=== PATIENT | male | born 1950 | race Caucasian/White ===

== ENCOUNTER 2021-11-18 11:35 | Inpatient (IN) ==
[2021-11-18] MEDS ORDERED: SODIUM CHLORIDE 0.9% 500 ML IV STA (12:04)
[2021-11-18 12:39] LABS: Basophils # (auto) 0.06 K/uL (0-0.2); Basophils % (auto) 0.4 %; Hematocrit (blood only) 38.8 % (40.1-51.0); Hemoglobin 12.3 g/dl (14.0-18.0); Immature Granulocytes # (auto) 0.08 K/uL (0.00-0.02); Immature Granulocytes % (auto) 0.6 %; Lymphocytes # (auto) 0.66 K/uL (1.2-3.4); Lymphocytes % (auto) 4.9 %; Mean Corpuscular Hemoglobin 28.5 pg (25.0-34.0); Mean Corpuscular Hgb Conc 31.7 g/dL (32.0-36.0); Mean Corpuscular Volume 89.8 fL (80.0-100.0); Mean Platelet Volume 9.1 fL (9.4-12.4); Monocytes # (auto) 1.03 K/uL (0.24-0.82); Monocytes % (auto) 7.7 %; Neutrophils # (auto) 11.62 K/uL (1.4-6.5); Neutrophils % (auto) 86.4 %; Platelet Count 462 K/uL (130-400); RDW Coefficient of Variation 14.8 % (11.5-14.5); RDW Standard Deviation 48.6 fL (36.4-46.3); Red Blood Count 4.32 M/uL (4.63-6.08); White Blood Count 13.45 K/ul (4.8-10.8)
[2021-11-18 12:42] LABS: iSTAT Creatinine 1.2 mg/dl (0.6-1.3); iSTAT Hemoglobin 13.3 g/dl (14.0-18.0); iSTAT Ionized Calcium 1.56 mmol/l (1.12-1.32); iSTAT Potassium 3.9 mmol/L (3.3-5.0)
[2021-11-18 12:48] LABS: INR 1.2 (0.9-1.1); Prothrombin Time 12.8 Seconds (9.0-12.0)
--- NOTE | 2021-11-18 12:57 | XRay Report ---
XR chest 1V portable HISTORY: Shortness of breath. COMPARISON: Chest 05/02/2018. Chest CTA 11/05/2021. FINDINGS: Extensive pulmonary metastatic disease is again noted. No pneumothorax. Small bilateral ple ural effusions, right greater than left persist. The heart is normal in size. Mild interstitial thick ening is again noted. Right jugular Port-A-Cath terminates at the proximal SVC. IMPRESSION: 1. Extensive pulmonary metastatic disease is again noted. 2. Small bilateral pleural effusions and interstitial thickening persists. This could represent pulmo nary edema or lymphangitic spread of tumor. ACT 112: Negative or not required by law. Electronically signed by: Taiwo Harden M.D. 11/18/2021 12:55 PM
[2021-11-18 12:58] LABS: Albumin Globulin Ratio 0.8 (0.9-2); Albumin Level 3.3 gm/dl (3.4-5.0); BUN Creatinine Ratio 28.4 (10-20); C Reactive Protein 15.92 mg/dl (0-0.5); Calcium 11.9 mg/dl (8.5-10.1); Creatinine Clr Calc Pharmacy 60.4 ml/min; Est GFR (African American) 79.8 ml/min; Est GFR (Non-African American) 68.9 ml/min; Globulin 3.9 gm/dl (2.5-4.0); Magnesium 1.9 mg/dl (1.7-2.4); Potassium 3.8 mmol/L (3.5-5.1); Total Protein 7.2 gm/dl (6.0-8.3)
--- NOTE | 2021-11-18 12:59 | Emergency Department Note ---
Impression & Plan Hypoxia, Urothelial carcinoma of bladder, Weakness, Pulmonary embolism, Hypercalcemia ED Provider Note Provider: Luis Miguel Leigh MD DATE OF SERVICE: 11/18/2021 CHIEF COMPLAINT: Weakness, shortness of breath, cancer HISTORY OF PRESENT ILLNESS: Patient is a 71-year-old gentleman history of metas tatic bladder cancer status postresection with neobladder currently on chemotherapy following with the cancer center coming in today due to decline over the past 3 weeks. Increasing shortness of breath particular over the last several days with some increasing nausea last several days. Reports some constipation but denies any chest pain or abdominal pain. States compliance with home Eliquis. Was scheduled to have chemotherapy infusion again tomorrow. Has been through radiation previously. Follows with cancer center locally. Not eating or drinking much and significantly shortness of breath. Patient with a very distant history of smoking he does not use oxygen at home. No sick contact s reported. REVIEW OF SYSTEMS: A total of 10 review of systems was obtained and negative except as stated above in the HPI. PAST MEDICAL HISTORY: As noted above MEDICATIONS: Reviewed home medication listing SOCIAL HISTORY: Lives at home with , very distant former smoker PHYSICAL EXAM: GENERAL: alert and oriented in no acute distress on stretcher fatigued in appearance on oxygen Head: normocephalic and atraumatic EYES: No injection, discharge or icterus. NECK: Trachea midline. Supple. ENT: Mucous membranes pink and moist. LUNGS: Airway patent. No retractions. Breath sounds generally diminished HEART: Regular tachycardic rate and rhythm. No chest wall tenderness with right upper chest subcutaneous port in place ABDOMEN: Soft and non-tender, without guarding or rebound. SKIN: Acyanotic, warm, dry, without rashes EXTREMITIES: Without swelling, tenderness or deformity NEUROLOGICAL: No focal deficits. No aphasia. No facial droop or slurred speech.Ambulatory. EK bpm sinus tachycardia. No PVC or PAC. No acute ST segment elevation or depression with QTC of 444. CONTINUOUS CARDIAC MONITORING: was ordered and showed a heart rate of 100s-130s bpm in sinus tachycardia Patient's laboratory studies and imaging reviewed. Differential includes Infection, dehydration, metabolic abnormality, hypo/hyperglycemia, electrolyte disturbance, anemia, hypoxia, cardiac sources, intracerebral event, toxicologic, neurologic, as well as other pathologies. IMPRESSION/MEDICAL DECISION MAKING: Patient on chemotherapy with weakness and significant hypoxia and shortness of breath now. Has been anticoagulated. Recent outpatient CT scans with evidence of cancer spread into the lungs. Blood work here without anemia and an elevated white blood cell count of 13.4. No fevers reported. No sick contacts reported. COVID and influenza testing was sent. Cultures and lactate will be obtained. We will send for his CAT scan of the chest as well as the abdomen pelvis to exclude pathology in the lungs or in the abdomen given his constipation complaint. Chest x-ray per radiology questions effusions versus interstitial thickening question edema versus lymphangitic spread. Chemistries with stable renal function and electrolytes with a notably elevated lactate however and some hypercalcemia. C-reactive protein also significantly elevated. Did receive IV fluid resuscitation given elevated lactate and decreased intake. Very minimal troponin elevation likely more demand from his tachycardia. Denies chest pain. Negative COVID, influenza, and RSV testing. 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 CTA of the chest with extensive pulmonary metastatic disease and pleural effusions with some progression with segmental and subsegmental PEs. Reached out to his oncology group to discuss these findings. He will obviously need admission given the degree of hypoxia he has an updated the patient and his with these findings. We will initiate a heparin drip and discussion with oncology. Weaned to 10 L of oxygen. DIAGNOSIS: Hypoxia, weakness, hypercalcemia, bladder cancer, pulmonary embolism DISPOSITION: Hospitalist will evaluate Patient was agreeable with this plan. Critical Care I have personally spent 42 minutes of critical care time in the direct ma nagement of this patient. This includes bedside care, interpretation of diagnostic studies, and testing, discussion with consultants, patient, and family members, and other required patient management activities. These 42 minutes is in excess of all separately billable procedures. Past Med/Surg History Medical History (Updated 11/18/21 @ 13:50 by Luis Miguel Leigh M.D.) Acid reflux Anemia symptomatic anemia 03/2018 felt related to significant hematuria (20+ days) 2/2 bladder cancer. S/P 3U PRBCs 03/2018 Anxiety Cancer HX OF BLADDER CA Cervical lymphadenopathy History of hypertension Surgical History H/O total cystectomy BLADDER AND PROSTATE REMOVED & LYMPH NODES - HAS NEOBLADDER History of adenoidectomy History of colonoscopy History of cystoscopy CYSTOSCOPY, TUBRT, STENT= 03/26/18= LMA# 5.0 AT [facility] History of endoscopic sinus surgery History of surgery PORT RIGHT UPPER CHEST (CURRENTLY PRESENT) History of tonsillectomy Family History Son Age: 33 No problems noted. Sister Age: 67 No problems noted. Sister No problems noted. Father , heart disease, No problems noted. Mother Arthritis Other No pertinent family history Social History Smoking Status: Former smoker Cigarettes Per Day: h/o 1ppd x 30yrs; Second Hand Exposure: No; Hx Alcohol Use: Yes Alcohol type: wine Hx Substance Use: No Preferred Language: Palestinian Communication Ability: Effective Visual Impairment: No Limitations Snow Plow Operator Required: No Beliefs That Will Affect Care: None Current Living Situation: Spouse and Family Feels Safe at Home: Yes Assistive Devices: Glasses Allergies Allergies Allergy/AdvReac Type Severity Reaction Status Date / Time No Known Allergies Allergy Verified 04/23/21 09:09 Home Meds Home Medications Medication Instructions Recorded Confirmed olanzapine 2.5 mg tablet 2.5 mg PO ONCE PRN tab 11/10/20 04/23/21 sacituzumab govitecan-hziy 180 mg IV .[id number] 11/10/20 04/23/21 intravenous solution dronabinol 2.5 mg capsule (Marinol) 2.5 mg PO BID 12/07/20 04/23/21 ondansetron HCl 8 mg tablet 8 mg PO Q8H PRN 12/21/20 04/23/21 prochlorperazine maleate 10 mg 10 mg PO Q6H PRN 12/21/20 04/23/21 tablet (Compazine) apixaban 5 mg tablet (Eliquis) 5 mg PO BID 04/23/21 04/23/21 potassium chloride 10 mEq 20 meq PO DAILY tab 04/23/21 04/23/21 tablet,extended release(part/cryst) pregabalin 50 mg capsule (Lyrica) 50 mg PO TID 04/23/21 04/23/21 Results & Data (ED) Vital Signs Vital Signs - 24 hr 11/18/21 11:35 11/18/21 11:44 11/18/21 13:27 Temperature 36.5 C Temperature Source Temporal Artery Scan Pulse Rate 133 H Pulse Rate [Apical] 121 H Pulse Rate from SpO2 Sensor Pulse Rhythm Regular Pulse Rhythm [Apical] Regular Pulse Strength Normal Pulse Strength [Apical] Normal Respiratory Rate 30 H 22 Respiratory Effort / Characteristics Non-Labored Non-Labored Spontaneous Non-Labored Respiratory Depth Normal Normal Normal Respiratory Pattern Regular Regular Regular Blood Pressure 101/45 L Blood Pressure [Left Arm] 136/98 Blood Pressure Mean 63 Blood Pressure Mean [Left Arm] 110 Blood Pressure Position Sitting Blood Pressure Position [Left Arm] Lying Pulse Oximetry 92 88 L 95 Oxygen Delivery Method Oxymask Room Air Oxymask Oxygen Flow Rate 15 15 Sepsis Recent Fever Within 48 Hours No Sepsis New/Unexplained Change in Mental Status No Sepsis Action Taken by Nursing No Action Required Oxygen Flow Rate - Titration 4 Pulse Oximetry Post Tiitration 85 L 11/18/21 14:30 11/18/21 14:40 Temperature Temperature Source Pulse Rate 107 H 116 H Pulse Rate [Apical] Pulse Rate from SpO2 Sensor 107 H 111 H Pulse Rhythm Pulse Rhythm [Apical] Pulse Strength Pulse Strength [Apical] Respiratory Rate 28 H 29 H Respiratory Effort / Characteristics Respiratory Depth Respiratory Pattern Blood Pressure 136/98 Blood Pressure [Left Arm] Blood Pressure Mean 110 Blood Pressure Mean [Left Arm] Blood Pressure Position Blood Pressure Position [Left Arm] Pulse Oximetry 94 93 Oxygen Delivery Method Oxymask Oxymask Oxygen Flow Rate 10 10 Sepsis Recent Fever Within 48 Hours Sepsis New/Unexplained Change in Mental Status Sepsis Action Taken by Nursing Oxygen Flow Rate - Titration Pulse Oximetry Post Tiitration Laboratory Data Result diagrams: 11/18/21 12:20 11/18/21 12:20 Lab Results 11/18/21 11/18/21 11/18/21 Range/Units 12:20 12:20 12:20 WBC 13.45 H (4.8-10.8) K/ul RBC 4.32 L (4.63-6.08) M/uL Hgb 12.3 L (14.0-18.0) g/dl POC Hgb (14.0-18.0) g/dl Hct 38.8 L (40.1-51.0) % POC Hct (42-52) % MCV 89.8 (80.0-100.0) fL MCH 28.5 (25.0-34.0) pg MCHC 31.7 L (32.0-36.0) g/dL RDW Std Deviation 48.6 H (36.4-46.3) fL RDW Coeff of Marisol 14.8 H (11.5-14.5) % Plt Count 462 H (130-400) K/uL MPV 9.1 L (9.4-12.4) fL Immature Gran % (Auto) 0.6 % Neut % (Auto) 86.4 % Lymph % (Auto) 4.9 % [place] % (Auto) 7.7 % Eos % (Auto) 0.0 % Baso % (Auto) 0.4 % Neut # (Auto) 11.62 H (1.4-6.5) K/uL Lymph # (Auto) 0.66 L (1.2-3.4) K/uL [place] # (Auto) 1.03 H (0.24-0.82) K/uL Eos # (Auto) 0.00 (0-0.50) K/uL Baso # (Auto) 0.06 (0-0.2) K/uL Immature Gran # (Auto) 0.08 H (0.00-0.02) K/uL PT 12.8 H (9.0-12.0) Seconds INR 1.2 H (0.9-1.1) APTT (21.0-31.0) Seconds PTT Ratio POC Sodium (135-144) mmol/L Sodium 135 L (136-145) mmol/L POC Potassium (3.3-5.0) mmol/L Potassium 3.8 (3.5-5.1) mmol/L POC Chloride (101-112) mmol/L Chloride 102 (98-107) mmol/L Carbon Dioxide 24 (21-32) mmol/L POC Total CO2 (24-31) mmol/L Anion Gap 9 (3-11) POC Anion Gap (16-25) mmol/L POC BUN (7-18) mg/dl BUN 31 H (6-23) mg/dl Creatinine 1.09 (0.6-1.4) mg/dl POC Creatinine (0.6-1.3) mg/dl Est Cr Clr Drug Dosing 60.4 ml/min Est GFR ( Amer) 79.8 ml/min Est GFR (Non-Af Amer) 68.9 ml/min BUN/Creatinine Ratio 28.4 H (10-20) Glucose 163 H (70-99(Fasting)) mg/dl POC Glucose (other) (70-99) mg/dl Lactate (0.4-2.0) mmol/L Calcium 11.9 H (8.5-10.1) mg/dl POC Ioniz Calcium Karon (1.12-1.32) mmol/l Magnesium 1.9 (1.7-2.4) mg/dl Total Bilirubin 1.0 (0.2-1.0) mg/dl AST 21 (13-39) U/L ALT 12 (7-52) U/L Alkaline Phosphatase 91 (34-104) U/L Troponin I High Sens 49.5 H (0-20) pg/ml C-Reactive Protein 15.92 H (0-0.5) mg/dl Total Protein 7.2 (6.0-8.3) gm/dl Albumin 3.3 L (3.4-5.0) gm/dl Globulin 3.9 (2.5-4.0) gm/dl Albumin/Globulin Ratio 0.8 L (0.9-2) Lipase 5 L (11-82) U/L Procalcitonin (0-0.5) ng/ml TSH (0.300-4.500) uIu/ml SARS-CoV-2 (PCR) (Negative) Influenza Type A (PCR) (Neg) Influenza Type B (PCR) (Neg) RSV (RT-PCR) (Neg) 11/18/21 11/18/21 11/18/21 Range/Units 12:20 12:20 12:20 WBC (4.8-10.8) K/ul RBC (4.63-6.08) M/uL Hgb (14.0-18.0) g/dl POC Hgb (14.0-18.0) g/dl Hct (40.1-51.0) % POC Hct (42-52) % MCV (80.0-100.0) fL MCH (25.0-34.0) pg MCHC (32.0-36.0) g/dL RDW Std Deviation (36.4-46.3) fL RDW Coeff of Marisol (11.5-14.5) % Plt Count (130-400) K/uL MPV (9.4-12.4) fL Immature Gran % (Auto) % Neut % (Auto) % Lymph % (Auto) % [place] % (Auto) % Eos % (Auto) % Baso % (Auto) % Neut # (Auto) (1.4-6.5) K/uL Lymph # (Auto) (1.2-3.4) K/uL [place] # (Auto) (0.24-0.82) K/uL Eos # (Auto) (0-0.50) K/uL Baso # (Auto) (0-0.2) K/uL Immature Gran # (Auto) (0.00-0.02) K/uL PT (9.0-12.0) Seconds INR (0.9-1.1) APTT (21.0-31.0) Seconds PTT Ratio POC Sodium (135-144) mmol/L Sodium (136-145) mmol/L POC Potassium (3.3-5.0) mmol/L Potassium (3.5-5.1) mmol/L POC Chloride (101-112) mmol/L Chloride (98-107) mmol/L Carbon Dioxide (21-32) mmol/L POC Total CO2 (24-31) mmol/L Anion Gap (3-11) POC Anion Gap (16-25) mmol/L POC BUN (7-18) mg/dl BUN (6-23) mg/dl Creatinine (0.6-1.4) mg/dl POC Creatinine (0.6-1.3) mg/dl Est Cr Clr Drug Dosing ml/min Est GFR ( Amer) ml/min Est GFR (Non-Af Amer) ml/min BUN/Creatinine Ratio (10-20) Glucose (70-99(Fasting)) mg/dl POC Glucose (other) (70-99) mg/dl Lactate 3.3 H* (0.4-2.0) mmol/L Calcium (8.5-10.1) mg/dl POC Ioniz Calcium Karon (1.12-1.32) mmol/l Magnesium (1.7-2.4) mg/dl Total Bilirubin (0.2-1.0) mg/dl AST (13-39) U/L ALT (7-52) U/L Alkaline Phosphatase (34-104) U/L Troponin I High Sens (0-20) pg/ml C-Reactive Protein (0-0.5) mg/dl Total Protein (6.0-8.3) gm/dl Albumin (3.4-5.0) gm/dl Globulin (2.5-4.0) gm/dl Albumin/Globulin Ratio (0.9-2) Lipase (11-82) U/L Procalcitonin 0.12 (0-0.5) ng/ml TSH 4.728 H (0.300-4.500) uIu/ml SARS-CoV-2 (PCR) (Negative) Influenza Type A (PCR) (Neg) Influenza Type B (PCR) (Neg) RSV (RT-PCR) (Neg) 11/18/21 11/18/21 11/18/21 Range/Units 12:20 12:26 12:40 WBC (4.8-10.8) K/ul RBC (4.63-6.08) M/uL Hgb (14.0-18.0) g/dl POC Hgb 13.3 L (14.0-18.0) g/dl Hct (40.1-51.0) % POC Hct 39 L (42-52) % MCV (80.0-100.0) fL MCH (25.0-34.0) pg MCHC (32.0-36.0) g/dL RDW Std Deviation (36.4-46.3) fL RDW Coeff of Marisol (11.5-14.5) % Plt Count (130-400) K/uL MPV (9.4-12.4) fL Immature Gran % (Auto) % Neut % (Auto) % Lymph % (Auto) % [place] % (Auto) % Eos % (Auto) % Baso % (Auto) % Neut # (Auto) (1.4-6.5) K/uL Lymph # (Auto) (1.2-3.4) K/uL [place] # (Auto) (0.24-0.82) K/uL Eos # (Auto) (0-0.50) K/uL Baso # (Auto) (0-0.2) K/uL Immature Gran # (Auto) (0.00-0.02) K/uL PT (9.0-12.0) Seconds INR (0.9-1.1) APTT 28.0 (21.0-31.0) Seconds PTT Ratio 1.0 POC Sodium 136 (135-144) mmol/L Sodium (136-145) mmol/L POC Potassium 3.9 (3.3-5.0) mmol/L Potassium (3.5-5.1) mmol/L POC Chloride 105 (101-112) mmol/L Chloride (98-107) mmol/L Carbon Dioxide (21-32) mmol/L POC Total CO2 23 L (24-31) mmol/L Anion Gap (3-11) POC Anion Gap 13.0 L (16-25) mmol/L POC BUN 28 H (7-18) mg/dl BUN (6-23) mg/dl Creatinine (0.6-1.4) mg/dl POC Creatinine 1.2 (0.6-1.3) mg/dl Est Cr Clr Drug Dosing ml/min Est GFR ( Amer) ml/min Est GFR (Non-Af Amer) ml/min BUN/Creatinine Ratio (10-20) Glucose (70-99(Fasting)) mg/dl POC Glucose (other) 167 H (70-99) mg/dl Lactate (0.4-2.0) mmol/L Calcium (8.5-10.1) mg/dl POC Ioniz Calcium Karon 1.56 H (1.12-1.32) mmol/l Magnesium (1.7-2.4) mg/dl Total Bilirubin (0.2-1.0) mg/dl AST (13-39) U/L ALT (7-52) U/L Alkaline Phosphatase (34-104) U/L Troponin I High Sens (0-20) pg/ml C-Reactive Protein (0-0.5) mg/dl Total Protein (6.0-8.3) gm/dl Albumin (3.4-5.0) gm/dl Globulin (2.5-4.0) gm/dl Albumin/Globulin Ratio (0.9-2) Lipase (11-82) U/L Procalcitonin (0-0.5) ng/ml TSH (0.300-4.500) uIu/ml SARS-CoV-2 (PCR) NEGATIVE (Negative) Influenza Type A (PCR) Negative (Neg) Influenza Type B (PCR) Negative (Neg) RSV (RT-PCR) Negative (Neg) Administered Medications Discontinued Medications Sodium Chloride (Nss) 500 mls @ 999 mls/hr IV .Q31M STA Stop: 11/18/21 12:34 Last Infusion: 11/18/21 13:08 Dose: 0 mls/hr Documented by: [id number] Admin: 11/18/21 12:17 Dose: 999 mls/hr Documented by: [id number] Sodium Chloride (Nss 1000ml) 1,000 mls @ 999 mls/hr IV .Q1H1M ONE Stop: 11/18/21 14:04 Last Infusion: 11/18/21 14:58 Dose: 0 mls/hr Documented by: [id number] Admin: 11/18/21 13:24 Dose: 999 mls/hr Documented by: [id number] Ioversol (Optiray 320 125ml) 120 ml IV ONCE ONE Stop: 11/18/21 13:04 Last Admin: 11/18/21 13:03 Dose: 120 ml Documented by: [id number] Imaging Data Radiologist's Impression: Abdomen/Pelvis CT 11/18/21 12:[address] WITH IV CONTRAST CT DOSE: HISTORY: Weakness. Shortness of breath, cancer hx, constipation TECHNIQUE: Multiaxial CT images of the abdomen and pelvis were performed following the use of intravenous contrast. A dose lowering technique was utilized adhering to the principles of ALARA. COMPARISON STUDY: Abdomen and pelvis CT 06/26/2020. FINDINGS: Please refer to same day chest CT for further evaluation of the extensive pulmonary metastatic disease and bilateral pleural effusions. No pneumoperitoneum. No pneumatosis. No suspicious lytic or blastic osseous lesions. The liver, pancreas, spleen, and adrenal glands are unremarkable. No right-sided hydronephrosis. Stable bilateral renal hypodense lesions likely representing cysts. There is a punctate stone within the upper pole of the left kidney. The main portal vein is patent. Calcified plaque within the normal caliber abdominal aorta. Slight increase in size in the necrotic left perinephric lymphadenopathy. These measure approximately 2.6 x 2.5 cm best seen on image 167. This abuts the traversing proximal left ureter best seen on image 187. This may account for the mild fullness within the left renal collecting system and mild urothelial thickening. Mildly enlarged central mesenteric lymph nodes have also increased in size. Dominant lymph node on image 294 measures 1.6 x 0.9 cm. Postoperative changes consistent with prior cystoprostatectomy and neobladder formation. This remains unchanged. No pelvic free fluid. No bowel wall thickening or obstruction. Moderate well-formed stool within the colon. Small bowel anastomosis again noted within the right lower quadrant. Normal appendix. Surgical clips seen within the pelvic sidewalls. Mild diffuse mesenteric edema has progressed. There appears to be a narrowed and thrombosed branch of the superior mesenteric vein best seen on images 185 through 233. Ther e is reconstitution distally. This favors chronic thrombus. This may account for the diffuse mesenteric edema. Probable punctate gallstones are noted. IMPRESSION: 1. Please refer to same day chest CT for further evaluation of extensive pulmonary metastatic disease and bilateral pleural effusions. 2. Slight progression of the necrotic para-aortic lymphadenopathy as well as the mild central mesenteric lymphadenopathy. This is concerning for metastatic disease. 3. Narrowed and thrombosed branch of the superior mesenteric vein as described above. This favors chronic thrombus and may account for the diffuse mesenteric e fede. 4. The left para-aortic lymphadenopathy abuts the traversing proximal left ureter. This may account for the mild urothelial thickening and mild fullness within the left renal collecting system. Consider follow-up ultrasound in one to 2 months to exclude the possibility of progressive left-sided hydronephrosis. 5. Postoperative changes as described above. ACT 112: Negative or not required by law. Electronically signed by: Taiwo Harden M.D. 11/18/2021 1:26 PM Chest CTA 11/18/21 12:04 CT ANGIOGRAPHY OF THE CHEST, PULMONARY EMBOLUS PROTOCOL CLINICAL HISTORY: Shortness of breath and hypoxia. Bladder cancer. Evaluate for pulmonary embolus. COMPARISON STUDY: Chest CT November 05, 2021. Chest radiograph November 18, 2021. TECHNIQUE: Following IV administration of 120 mL of Optiray, helical axial images of the chest were obtained utilizing the pulmonary embolus protocol. Maximal intensity projections and sagittal and coronal reformats were viewed on an independent 3D workstation. IV contrast was administered without complicati on. Automated exposure control was utilized for the study. A dose lowering technique was utilized adhering to the principles of ALARA. CT DOSE: 592.07 mGy.cm FINDINGS: A few filling defects within the segmental and subsegmental pulmonary arteries of the right lower lobe are noted. These were not evident on prior stud y. These represent pulmonary emboli. Note is again made of near occlusive thrombus within the left brachiocephalic vein. There is also suspected occlusive thrombus within the distal left internal jugular vein. This thrombus results in significant venous narrowing which accounts for opacification of collaterals on this exam. Size of the heart is normal. There is no thoracic aortic dissection. A small to moderate right pleural effusion has increased in size since prior exam. Small left pleural effusion is unchanged. No pneumothorax is present. There has been progression of extensive mediastinal and bilateral hilar lymphadenopathy since prior CT of November 05, 2021. Index left hilar lymph node danis sures 2.9 x 2.8 cm. It previously measured 2.6 x 2.6 cm. Extensive pulmonary metastases have also increased. Index right upper lobe lesion on image 227 measures 5.4 cm. It previously measured 3.9 cm. Lymphangitic tumor is again noted within the lungs. No suspicious lesions within the bony thorax. Abdomen and pelvis will be reported separately. IMPRESSION: 1. A few segmental and subsegmental pulmonary emboli within the right lower lobe. Redemonstration of near occlusive thrombus within the left brachiocephalic and left internal jugular veins. This thrombus results in significant venous narrowing and accounts for opacification of collaterals. 2. Progression of extensive metastatic disease within the chest since chest CT of November 05, 2021. Pulmonary and edis metastases with interlobular septal thickening suggestive of lymphangitic tumor. 3. Increase in size of a small to moderate right pleural effusion. Stable small left pleural effusion. ACT 112: Negative or not required by law. Electronically signed by: Bertrand Valdez M.D. 11/18/2021 1:43 PM Chest X-Ray 11/18/21 12:04 XR chest 1V portable HISTORY: Shortness of breath. COMPARISON: Chest 05/02/2018. Chest CTA 11/05/2021. FINDINGS: Extensive pulmonary metastatic disease is again noted. No pneumothorax. Small bilateral pleural effusions, right greater than left persist. The heart is normal in size. Mild interstitial thickening is again noted. Right jugular Port-A-Cath terminates at the proximal SVC. IMPRESSION: 1. Extensive pulmonary metastatic disease is again noted. 2. Small bilateral pleural effusions and interstitial thickening persists. This could represent pulmonary edema or lymphangitic spread of tumor. ACT 112: Negative or not required by law. Electronically signed by: Taiwo Harden M.D. 11/18/2021 12:55 PM Discharge Plan Visit Data Chief Complaint: Shortness of Breath/Dyspnea Stated Complaint: SOB, CAN HARDLY WALK, CHEMO ED Provider: Luis Miguel Leigh Discharge Problem: Hypoxia, Urothelial carcinoma of bladder, Weakness, Pulmonary embolism, Hypercalcemia Patient Disposition: Being Evaluated by Hospitalist Forms Stand Alone Forms: My [facility] Prescriptions Prescriptions: No Action olanzapine 2.5 mg tablet 2.5 mg PO ONCE PRNRF: 0 sacituzumab govitecan-hziy 180 mg recon soln IV .[id number] RF: 0 dronabinol [Marinol] 2.5 mg capsule 2.5 mg PO BID RF: 0 ondansetron HCl 8 mg tablet 8 mg PO Q8H PRNRF: 0 prochlorperazine maleate [Compazine] 10 mg tablet 10 mg PO Q6H PRNRF: 0 potassium chloride 10 mEq tablet,ER particles/crystals 20 meq PO DAILY RF: 0 Eliquis 5 mg tablet 5 mg PO BID RF: 0 pregabalin [Lyrica] 50 mg capsule 50 mg PO TID RF: 0 Referrals Referrals: Jim Douglas DO [Primary Care Provider] - Discharge Problem: Pulmonary embolism Qualifiers: Pulmonary embolism type: multiple subsegmental (without acute cor pulmonale) Qualified Code(s): I26.94 - Multiple subsegmental pulmonary emboli without acute cor pulmonale
[2021-11-18] MEDS ORDERED: OPTIRAY 320 125ml IV ONE (13:03)
[2021-11-18 13:04] LABS: Troponin I High Sensitivity 49.5 pg/ml (0-20)
[2021-11-18] MEDS ORDERED: SODIUM CHLORIDE 0.9% 1000ML 1,000 ML IV ONE (13:04)
[2021-11-18 13:19] LABS: Thyroid Stimulating Hormone 4.728 uIu/ml (0.300-4.500)
[2021-11-18 13:26] LABS: Influenza A virus by PCR Negative (Neg); Influenza B virus by PCR Negative (Neg); RSV by PCR Negative (Neg); SARS CoV2 RNA(COVID-19) InHosp NEGATIVE (Negative)
--- NOTE | 2021-11-18 13:28 | CT Scan Report ---
ABDOMEN AND PELVIS CT WITH IV CONTRAST CT DOSE: HISTORY: Weakness. Shortness of breath, cancer hx, constipation TECHNIQUE: Multiaxial CT images of the abdomen and pelvis were performed following the use of intrave nous contrast. A dose lowering technique was utilized adhering to the principles of ALARA. COMPARISON STUDY: Abdomen and pelvis CT 06/26/2020. FINDINGS: Please refer to same day chest CT for further evaluation of the extensive pulmonary metasta tic disease and bilateral pleural effusions. No pneumoperitoneum. No pneumatosis. No suspicious lytic or blastic osseous lesions. The liver, pancreas, spleen, and adrenal glands are unremarkable. No rig ht-sided hydronephrosis. Stable bilateral renal hypodense lesions likely representing cysts. There is a punctate stone within the upper pole of the left kidney. The main portal vein is patent. Calcified plaque within the normal caliber abdominal aorta. Slight increase in size in the necrotic left perin ephric lymphadenopathy. These measure approximately 2.6 x 2.5 cm best seen on image 167. This abuts t he traversing proximal left ureter best seen on image 187. This may account for the mild fullness wit hin the left renal collecting system and mild urothelial thickening. Mildly enlarged central mesenter ic lymph nodes have also increased in size. Dominant lymph node on image 294 measures 1.6 x 0.9 cm. P ostoperative changes consistent with prior cystoprostatectomy and neobladder formation. This remains unchanged. No pelvic free fluid. No bowel wall thickening or obstruction. Moderate well-formed stool within the colon. Small bowel anastomosis again noted within the right lower quadrant. Normal appendi x. Surgical clips seen within the pelvic sidewalls. Mild diffuse mesenteric edema has progressed. The re appears to be a narrowed and thrombosed branch of the superior mesenteric vein best seen on images 185 through 233. There is reconstitution distally. This favors chronic thrombus. This may account fo r the diffuse mesenteric edema. Probable punctate gallstones are noted. IMPRESSION: 1. Please refer to same day chest CT for further evaluation of extensive pulmonary metastatic disease and bilateral pleural effusions. 2. Slight progression of the necrotic para-aortic lymphadenopathy as well as the mild central mesente sim lymphadenopathy. This is concerning for metastatic disease. 3. Narrowed and thrombosed branch of the superior mesenteric vein as described above. This favors chr onic thrombus and may account for the diffuse mesenteric edema. 4. The left para-aortic lymphadenopathy abuts the traversing proximal left ureter. This may account f or the mild urothelial thickening and mild fullness within the left renal collecting system. Consider follow-up ultrasound in one to 2 months to exclude the possibility of progressive left-sided hydrone phrosis. 5. Postoperative changes as described above. ACT 112: Negative or not required by law. Electronically signed by: Taiwo Harden M.D. 11/18/2021 1:26 PM
--- NOTE | 2021-11-18 13:44 | CT Scan Report ---
CT ANGIOGRAPHY OF THE CHEST, PULMONARY EMBOLUS PROTOCOL CLINICAL HISTORY: Shortness of breath and hypoxia. Bladder cancer. Evaluate for pulmonary embolus. COMPARISON STUDY: Chest CT November 05, 2021. Chest radiograph November 18, 2021. TECHNIQUE: Following IV administration of 120 mL of Optiray, helical axial images of the chest were o btained utilizing the pulmonary embolus protocol. Maximal intensity projections and sagittal and cor onal reformats were viewed on an independent 3D workstation. IV contrast was administered without co mplication. Automated exposure control was utilized for the study. A dose lowering technique was ut ilized adhering to the principles of ALARA. CT DOSE: 592.07 mGy.cm FINDINGS: A few filling defects within the segmental and subsegmental pulmonary arteries of the right lower lobe are noted. These were not evident on prior study. These represent pulmonary emboli. Note is again made of near occlusive thrombus within the left brachiocephalic vein. There is also suspecte d occlusive thrombus within the distal left internal jugular vein. This thrombus results in significa nt venous narrowing which accounts for opacification of collaterals on this exam. Size of the heart i s normal. There is no thoracic aortic dissection. A small to moderate right pleural effusion has incr eased in size since prior exam. Small left pleural effusion is unchanged. No pneumothorax is present. There has been progression of extensive mediastinal and bilateral hilar lymphadenopathy since prior CT of November 05, 2021. Index left hilar lymph node measures 2.9 x 2.8 cm. It previously measured 2.6 x 2.6 cm. Extensive pulmonary metastases have also increased. Index right upper lobe lesion on image 22 7 measures 5.4 cm. It previously measured 3.9 cm. Lymphangitic tumor is again noted within the lungs. No suspicious lesions within the bony thorax. Abdomen and pelvis will be reported separately. IMPRESSION: 1. A few segmental and subsegmental pulmonary emboli within the right lower lobe. Redemonstration of near occlusive thrombus within the left brachiocephalic and left internal jugular veins. This thrombu s results in significant venous narrowing and accounts for opacification of collaterals. 2. Progression of extensive metastatic disease within the chest since chest CT of November 05, 2021. Pulm onary and edis metastases with interlobular septal thickening suggestive of lymphangitic tumor. 3. Increase in size of a small to moderate right pleural effusion. Stable small left pleural effusion . ACT 112: Negative or not required by law. Electronically signed by: Bertrand Valdez M.D. 11/18/2021 1:43 PM
[2021-11-18] MEDS ORDERED: Heparin IV Adult Wt-Based Standard WITH Bolus Protocol IV STA (14:48)
--- NOTE | 2021-11-18 14:57 | History & Physical Report ---
Date of Service November 18, 2021 Assessment & Plan (1) Acute respiratory failure with hypoxia: Plan: Aim O2 sats > 90%. Multifactorial with progression of metastatic disease, pulmonary emboli and presumable metastatic pleural effusion. Discussed possibility of home with hospice care which he is open to however there was talk of another off label trial of a medication for his cancer that he would like to discuss with his oncologist first. If patient wishes to go home without hospice consider pulm consult due to pleural effusion if he is unable to get down to 6LPM O2 - but will defer this on admission and see how he does with pulmonary emboli treatment. Highly recommend re-discussing code status once patient has had time to digest his diagnosis and poor prognosis. Consult oncology and palliative care. (2) Pulmonary embolism: Plan: Failed Eliquis 2.5mg PO BID - higher dose caused previous hematuria. Start heparin IV standard with bolus. Consult hematology for ongoing advice regarding anticoagulation. (3) Hypercalcemia: Plan: Suspect from volume depletion +/- metastatic cancer. Mild with ionized calcium 1.56. Repeat BMP later tonight to make sure it is improving. No need for bisphosphonates or calcitonin currently. (4) Metastatic urothelial carcinoma: Plan: Rapid progression over the last month concerning. Consult oncology. (5) Hypothyroid: Plan: TSH 4.728. Continue levothyroxine 25mcg PO daily. Plan: VTE Prophylaxis - IV heparin. Diet - regular with boost drinks and press offbearer consult. Disposition - admit to PCU. Admission and Anticipated Discharge Date Admission Date: November 18, 2021 History of Present Illness Chief Complaint: Shortness of breath Primary Care Provider: Jim Douglas II, Landon Pierre is a 71 year old male with known metastatic urothelial cell cancer who presents to the ER with progressive worsening shortness of breath over the last 2 weeks. He denies any chest pain or palpitations. He reports he is much worse over the last 2 days. 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 In the ER he was requiring 15LPM O2, now reduced to 10LPM O2 when seen. CT chest/abdomen/pelvis concerning for a few segmental and subsegmental pulmonary emboli within the right lower lobe but also progression of extensive metastatic disease within the chest since November 05, 2021 and increase in size of small- moderate right pleural effusion. He was started on IV heparin and referred to medicine for admission and ongoing management of hypoxia, pulmonary emboli, metastatic cancer and hypercalcemia. Allergies Allergy/AdvReac Type Severity Reaction Status Date / Time No Known Allergies Allergy Verified 11/18/21 15:47 Home Medications Medication Instructions Recorded Confirmed Type apixaban 2.5 mg tablet (Eliquis) 2.5 mg PO BID 11/18/21 11/18/21 History dexamethasone 4 mg tablet See Rx Instructions .ROUTE .COMPLEX 11/18/21 11/18/21 History dronabinol 5 mg capsule 5 mg PO BID 11/18/21 11/18/21 History levothyroxine 25 mcg tablet 25 mcg PO DAILY 11/18/21 11/18/21 History (Synthroid) pantoprazole 40 mg tablet,delayed 40 mg PO QAM 11/18/21 11/18/21 History release pregabalin 100 mg capsule 100 mg PO BID 11/18/21 11/18/21 History Past Med/Surg History Medical History (Updated 11/18/21 @ 17:14 by Bernardino Gallagher MD) Acid reflux Anemia symptomatic anemia 03/2018 felt related to significant hematuria (20+ days) 2/2 bladder cancer. S/P 3U PRBCs 03/2018 Anxiety Cancer HX OF BLADDER CA Cervical lymphadenopathy History of hypertension Surgical History H/O total cystectomy BLADDER AND PROSTATE REMOVED & LYMPH NODES - HAS NEOBLADDER History of adenoidectomy History of colonoscopy History of cystoscopy CYSTOSCOPY, TUBRT, STENT= 03/26/18= LMA# 5.0 AT [facility] History of endoscopic sinus surgery History of surgery PORT RIGHT UPPER CHEST (CURRENTLY PRESENT) History of tonsillectomy Family History Son Age: 33 No problems noted. Sister Age: 67 No problems noted. Sister No problems noted. Father , heart disease, No problems noted. Mother Arthritis Other No pertinent family history Social History Smoking Status: Former smoker Cigarettes Per Day: h/o 1ppd x 30yrs; Second Hand Exposure: No; Do You Dip or Chew Tobacco: No; Hx Alcohol Use: Yes Alcohol type: beer Hx Substance Use: No Preferred Language: Chilean Communication Ability: Effective Visual Impairment: No Limitations Breakfast Server Required: No Beliefs That Will Affect Care: None Current Living Situation: Spouse Other Information That Helps Us Care for You: No Feels Safe at Home: Yes Safety Concerns: Feels Safe At This Time Assistive Devices: Oxygen - Continuous Review of Systems Review of Systems: All systems reviewed & are unremarkable except as noted in HPI & below Physical Exam Constitutional: well developed and + acute distress (respiratory); + not well nourished Eyes: PERRL, conjunctivae normal, anicteric sclerae ENMT: Mouth: + dry oral mucous membranes Neck: trachea midline, no thyromegaly Respiratory: + respiratory distress, + labored breathing, + uses accessory muscles and able to speak in complete sentences; not tachypneic Auscultation: no diminished lung sounds Cardiovascular: Rate/Rhythm: regular rhythm and + tachycardic Heart Sounds: no murmur Gastrointestinal (Abdomen): normal bowel sounds, soft, nontender, no hepatosplenomegaly Musculoskeletal: no cyanosis or clubbing, extremities motor strength 5/5 Skin: no rashes, warm and dry Neurologic: moves all extremities and awake; not confused Psychiatric: A+Ox3, euthymic affect Results & Data Results & Data ([facility]) Vital Signs (Past 12 Hours) Vital Signs Temp Pulse Pulse Resp BP BP Pulse Ox 11/18/21 14:40 116 H 29 H 93 11/18/21 14:30 107 H 28 H 136/98 94 11/18/21 13:27 121 H 22 136/98 95 11/18/21 11:44 36.5 C 133 H 30 H 101/45 L 88 L 11/18/21 11:[address] ANGIOGRAPHY OF THE CHEST, PULMONARY EMBOLUS PROTOCOL CLINICAL HISTORY: Shortness of breath and hypoxia. Bladder cancer. Evaluate for pulmonary embolus. COMPARISON STUDY: Chest CT November 05, 2021. Chest radiograph November 18, 2021. TECHNIQUE: Following IV administration of 120 mL of Optiray, helical axial images of the chest were obtained utilizing the pulmonary embolus protocol. Maximal intensity projections and sagittal and coronal reformats were viewed on an independent 3D workstation. IV contrast was administered without complication. Automated exposure control was utilized for the study. A dose lowering technique was utilized adhering to the principles of ALARA. CT DOSE: 592.07 mGy.cm FINDINGS: A few filling defects within the segmental and subsegmental pulmonary arteries of the right lower lobe are noted. These were not evident on prior study. These represent pulmonary emboli. Note is again made of near occlusive thrombus within the left brachiocephalic vein. There is also suspected occlusive thrombus within the distal left internal jugular vein. This thrombus results in significant venous narrowing which accounts for opacification of collaterals on this exam. Size of the heart is normal. There is no thoracic aortic dissection. A small to moderate right pleural effusion has increased in size since prior exam. Small left pleural effusion is unchanged. No pneumothorax is present. There has been progression of extensive mediastinal and bilateral hilar lymphadenopathy since prior CT of November 05, 2021. Index left hilar lymph node me asures 2.9 x 2.8 cm. It previously measured 2.6 x 2.6 cm. Extensive pulmonary metastases have also increased. Index right upper lobe lesion on image 227 measures 5.4 cm. It previously measured 3.9 cm. Lymphangitic tumor is again noted within the lungs. No suspicious lesions within the bony thorax. Abdomen and pelvis will be reported separately. IMPRESSION: 1. A few segmental and subsegmental pulmonary emboli within the right lower lobe. Redemonstration of near occlusive thrombus within the left brachiocephalic and left internal jugular veins. This thrombus results in significant venous narrowing and accounts for opacification of collaterals. 2. Progression of extensive metastatic disease within the chest since chest CT of November 05, 2021. Pulmonary and edis metastases with interlobular septal thickening suggestive of lymphangitic tumor. 3. Increase in size of a small to moderate right pleural effusion. Stable small left pleural effusion. ABDOMEN AND PELVIS CT WITH IV CONTRAST CT DOSE: HISTORY: Weakness. Shortness of breath, cancer hx, constipation TECHNIQUE: Multiaxial CT images of the abdomen and pelvis were performed following the use of intravenous contrast. A dose lowering technique was utilized adhering to the principles of ALARA. COMPARISON STUDY: Abdomen and pelvis CT 06/26/2020. FINDINGS: Please refer to same day chest CT for further evaluation of the extensive pulmonary metastatic disease and bilateral pleural effusions. No pneumoperitoneum. No pneumatosis. No suspicious lytic or blastic osseous lesions. The liver, pancreas, spleen, and adrenal glands are unremarkable. No right-sided hydronephrosis. Stable bilateral renal hypodense lesions likely representing cysts. There is a punctate stone within the upper pole of the left kidney. The main portal vein is patent. Calcified plaque within the normal caliber abdominal aorta. Slight increase in size in the necrotic left perinephric lymphadenopathy. These measure approximately 2.6 x 2.5 cm best seen on image 167. This abuts the traversing proximal left ureter best seen on image 187. This may account for the mild fullness within the left renal collecting system and mild urothelial thickening. Mildly enlarged central mesenteric lymph nodes have also increased in size. Dominant lymph node on image 294 measures 1.6 x 0.9 cm. Postoperative changes consistent with prior cystoprostatectomy and neobladder formation. This remains unchanged. No pelvic free fluid. No bowel wall thickening or obstruction. Moderate well-formed stool within the colon. Small bowel anastomosis again noted within the right lower quadrant. Normal appendix. Surgical clips seen within the pelvic sidewalls. Mild diffuse mesenteric edema has progressed. There appears to be a narrowed and thrombosed branch of the superior mesenteric vein best seen on images 185 through 233. There is reconstitution distally. This favors chronic thrombus. This may account for the diffuse mesenteric edema. Probable punctate gallstones are noted. IMPRESSION: 1. Please refer to same day chest CT for further evaluation of extensive pulmonary metastatic disease and bilateral pleural effusions. 2. Slight progression of the necrotic para-aortic lymphadenopathy as well as the mild central mesenteric lymphadenopathy. This is concerning for metastatic disease. 3. Narrowed and thrombosed branch of the superior mesenteric vein as described above. This favors chronic thrombus and may account for the diffuse mesenteric edema. 4. The left para-aortic lymphadenopathy abuts the traversing proximal left ureter. This may account for the mild urothelial thickening and mild fullness within the left renal collecting system. Consider follow-up ultrasound in one to 2 months to exclude the possibility of progressive left-sided hydronephrosis. 5. Postoperative changes as described above. Medications Administered ER Medications Given: NSS 1.5 L bolus Code Status & VTE Plan Code Status Full - the patient refused a full conversation regarding this at bedside as he was trying to digest his progressive worsening diagnosis. He reports never having this discussion before and at the current time wants everything possible done. VTE Prophylaxis Plan VTE Prophylaxis will be ordered: Yes PG Care Time/CCT Total # of Minutes Spent Total Time Spent with Patient: Total time spent is greater than 50% in coordination of care (as documented) at patient's floor/unit and/or counseling patient: Coding Level of Care Code 55557 Initial Inpt Care Lvl 3 Diagnoses Metastatic urothelial carcinoma C79.10 Pulmonary embolism I26.94 Pulmonary embolism type: multiple subsegmental (without acute cor pulmonale) Hypercalcemia E83.52 Acute respiratory failure with hypoxia J96.01 Hypothyroid E03.9 (1) Pulmonary embolism Pulmonary embolism type: multiple subsegmental (without acute cor pulmonale) Qualified Code(s): I26.94 - Multiple subsegmental pulmonary emboli without acute cor pulmonale
[2021-11-18] MEDS ORDERED: HEPARIN SOD (PORCINE) 1000 UNIT/ML IV ONE ×2 (15:04→15:15)
[2021-11-18] MEDS: HEPARIN SODIUM/DEXTROSE 25,000 UNITS/500 ML BAG IV SCH (15:22)
[2021-11-18 15:27] LABS: T4 Free Thyroxine 1.06 ng/dl (0.61-1.60)
[2021-11-18] MEDS ORDERED: ACETAMINOPHEN 325 MG TAB PO PRN (18:12)
[2021-11-18] MEDS: PREGABALIN 100 MG CAP PO SCH (20:45)
--- NOTE | 2021-11-18 21:15 | Communication Note ---
Date of Service: November 18, 2021 desat on 10L while sleeping. Ordering abg. high flow for now aim sats 90 abg w/ hypoxia. Ventilation is good. cpap pressure of 6. tolerated for several hours w/ improved sats. in AM, switched back to high flow.
[2021-11-18 21:31] LABS: BUN Creatinine Ratio 24.5 (10-20); Calcium 10.7 mg/dl (8.5-10.1); Creatinine Clr Calc Pharmacy 67.6 ml/min; Est GFR (African American) 90.8 ml/min; Est GFR (Non-African American) 78.4 ml/min
[2021-11-18 21:36] LABS: Base Excess ABG -2.3 mEq/L (-9-1.8); HCO3 ABG 21 mmol/L (19-24); Oxygen Saturation ABG 89.3 % (90-95); PCO2 ABG 32 mmHg (35-46); PO2 ABG 66 mmHg (80-95); pH ABG 7.43 (7.35-7.45)
[2021-11-18 21:38] LABS: Allen Test Pos (Pos)
[2021-11-18 21:40] LABS: Partial Thromboplastin Ratio 1.7
[2021-11-18] MEDS: DOCUSATE SODIUM 100 MG CAP PO SCH (21:53)
[2021-11-18 21:55] LABS: Partial Thromboplastin Time 47.9 Seconds (21.0-31.0)
[2021-11-19] MEDS: LEVOTHYROXINE SODIUM 25 MCG TABLET PO SCH (06:34)
[2021-11-19 07:27] LABS: Basophils # (auto) 0.08 K/uL (0-0.2); Basophils % (auto) 0.7 %; Eosinophils # (auto) 0.03 K/uL (0-0.50); Eosinophils % (auto) 0.3 %; Hematocrit (blood only) 31.5 % (40.1-51.0); Hemoglobin 9.8 g/dl (14.0-18.0); Immature Granulocytes # (auto) 0.08 K/uL (0.00-0.02); Immature Granulocytes % (auto) 0.7 %; Lymphocytes # (auto) 0.52 K/uL (1.2-3.4); Lymphocytes % (auto) 4.4 %; Mean Corpuscular Hemoglobin 27.7 pg (25.0-34.0); Mean Corpuscular Hgb Conc 31.1 g/dL (32.0-36.0); Mean Platelet Volume 8.8 fL (9.4-12.4); Monocytes # (auto) 1.03 K/uL (0.24-0.82); Monocytes % (auto) 8.7 %; Neutrophils # (auto) 10.04 K/uL (1.4-6.5); Neutrophils % (auto) 85.2 %; Platelet Count 376 K/uL (130-400); RDW Coefficient of Variation 14.9 % (11.5-14.5); RDW Standard Deviation 48.3 fL (36.4-46.3); Red Blood Count 3.54 M/uL (4.63-6.08); White Blood Count 11.78 K/ul (4.8-10.8)
[2021-11-19 07:39] LABS: Partial Thromboplastin Ratio 1.5; Partial Thromboplastin Time 42.4 Seconds (21.0-31.0)
[2021-11-19] MEDS: PREGABALIN 100 MG CAP PO SCH ×2 (07:56→19:56)
[2021-11-19] MEDS: DOCUSATE SODIUM 100 MG CAP PO SCH ×2 (07:56→19:56)
[2021-11-19 07:59] LABS: BUN Creatinine Ratio 24.2 (10-20); Calcium 10.9 mg/dl (8.5-10.1); Est GFR (African American) 94.3 ml/min; Est GFR (Non-African American) 81.3 ml/min
[2021-11-19] MEDS: PANTOprazole 40 MG TAB PO SCH (08:21)
--- NOTE | 2021-11-19 11:35 | Hospitalist Progress Note ---
Date of Service November 19, 2021 Assessment & Plan (1) Acute respiratory failure with hypoxia: Plan: Multifactorial with progression of metastatic disease, pulmonary emboli and presumable metastatic pleural effusion. Discussed possibility of home with hospice care which he is open to however there was talk of another off label trial of a medication for his cancer that he would like to discuss with his oncologist first. If patient wishes to go home without hospice consider pulm consult due to pleural effusion if he is unable to get down to 6LPM O2 - but will defer this on admission and see how he does with pulmonary emboli treatment. Highly recommend re-discussing code status once patient has had time to digest his diagnosis and poor prognosis. - Consulted oncology - Have discussed today with [place] oncologist (Dr. Vicky Swift) and local (Dr. Velasquez and Ms. George). Tentative plan for home with hospice. (2) Pulmonary embolism: Plan: CDS query: Metastatic urothelial cancer with mets to lungs inducing hypercoagulable state causing thromboses and PE's. - Failed Eliquis 2.5mg PO BID - higher dose caused previous hematuria. - Started heparin IV standard with bolus. - Plan to transition back to Eliquis (but use loading dosing first) (3) Hypercalcemia: Plan: Suspect from volume depletion +/- metastatic cancer. Mild with ionized calcium 1.56. - No need for bisphosphonates or calcitonin currently. - Will trend, but no active management at the moment. (4) Metastatic urothelial carcinoma: Plan: Rapid progression over the last month concerning. - As above (5) Hypothyroid: Plan: TSH 4.728. - Continue levothyroxine 25mcg PO daily. Admission and Anticipated Discharge Date Admission Date: November 18, 2021 Subjective Doing ok today. Feeling somewhat short of breath. Reports no fevers/chills, chest pain, abdominal pain, nausea, or vomiting. Physical Exam Constitutional: WD/WN, vitals as above Eyes: EOM intact bilaterally; no conjunctival abnormality ENMT: external ear and nose normal, oropharynx normal Neck: trachea midline, no thyromegaly normal visual inspection Respiratory: + labored breathing; no respiratory distress Auscultation: + crackles (Diffuse) Cardiovascular: RRR, no murmur, no edema Gastrointestinal (Abdomen): Inspection/Auscultation: abdomen normal to inspection; abdomen not distended Musculoskeletal: no cyanosis or clubbing, extremities motor strength 5/5 Skin: no rashes, warm and dry Neurologic: moves all extremities and awake Psychiatric: Orientation: alert, oriented to person and cooperative Results & Data Results & Data ([facility]) Vital Signs (Past 12 Hours) Vital Signs Temp Pulse Pulse Resp BP Pulse Ox 11/19/21 10:56 87 20 91 11/19/21 02:45 110 H 27 H 95 11/19/21 02:42 36.8 C 114 H 20 121/79 94 PG Care Time/CCT Total # of Minutes Spent Total Time Spent with Patient: Total time spent is greater than 50% in coordination of care (as documented) at patient's floor/unit and/or counseling patient: Coding Level of Care Code 39928 Subseq Hosp Care Lvl 3 Diagnoses Acute respiratory failure with hypoxia J96.01 Pulmonary embolism I26.94 Pulmonary embolism type: multiple subsegmental (without acute cor pulmonale) Hypercalcemia E83.52 Metastatic urothelial carcinoma C79.10 Hypothyroid E03.9 (1) Pulmonary embolism Pulmonary embolism type: multiple subsegmental (without acute cor pulmonale) Qualified Code(s): I26.94 - Multiple subsegmental pulmonary emboli without acute cor pulmonale
[2021-11-19] MEDS: HEPARIN SODIUM/DEXTROSE 25,000 UNITS/500 ML BAG IV SCH (12:22)
--- NOTE | 2021-11-19 13:36 | Electrocardiogram Report ---
Test Reason : Blood Pressure : / mmHG Vent. Rate : 119 BPM Atrial Rate : 119 BPM P-R Int : 132 ms QRS Dur : 098 ms QT Int : 316 ms P-R-T Axes : 053 023 036 degrees QTc Int : 444 ms Sinus tachycardia Low voltage QRS Borderline ECG When compared with ECG of 08-APR-2019 14:04, No significant change was found Confirmed by José Miguel Haile ([id number]) on 11/19/2021 1:35:54 PM Referred By: REFERRED SELF Confirmed By:José Miguel Haile
[2021-11-19] MEDS ORDERED: FUROSEMIDE 40 MG/4 ML VIAL IV ONE (13:51)
[2021-11-19 16:42] LABS: Partial Thromboplastin Ratio 1.5
[2021-11-19 23:44] LABS: Partial Thromboplastin Ratio 1.7
[2021-11-20 00:12] LABS: Partial Thromboplastin Time 45.8 Seconds (21.0-31.0)
[2021-11-20] MEDS: LEVOTHYROXINE SODIUM 25 MCG TABLET PO SCH (05:35)
[2021-11-20 06:01] LABS: Hematocrit (blood only) 32.6 % (40.1-51.0); Hemoglobin 10.2 g/dl (14.0-18.0); Mean Corpuscular Hemoglobin 27.6 pg (25.0-34.0); Mean Corpuscular Hgb Conc 31.3 g/dL (32.0-36.0); Mean Corpuscular Volume 88.1 fL (80.0-100.0); Mean Platelet Volume 8.5 fL (9.4-12.4); Platelet Count 352 K/uL (130-400); RDW Coefficient of Variation 14.8 % (11.5-14.5); RDW Standard Deviation 47.5 fL (36.4-46.3); White Blood Count 10.77 K/ul (4.8-10.8)
[2021-11-20 06:30] LABS: BUN Creatinine Ratio 23.7 (10-20); Calcium 11.5 mg/dl (8.5-10.1); Creatinine Clr Calc Pharmacy 67.7 ml/min; Est GFR (African American) 91.9 ml/min; Est GFR (Non-African American) 79.3 ml/min; Magnesium 1.7 mg/dl (1.7-2.4)
[2021-11-20] MEDS: PANTOprazole 40 MG TAB PO SCH (08:46)
[2021-11-20] MEDS: DOCUSATE SODIUM 100 MG CAP PO SCH ×2 (08:46→19:34)
[2021-11-20] MEDS: PREGABALIN 100 MG CAP PO SCH ×2 (08:46→19:34)
[2021-11-20] MEDS ORDERED: FUROSEMIDE 40 MG/4 ML VIAL IV ONE (09:23)
--- NOTE | 2021-11-20 09:29 | Pulmonary Consultation ---
Date of Consultation November 20, 2021 Assessment & Plan (1) Acute respiratory failure with hypoxia: (2) Pulmonary embolism: Pulmonary embolism type: multiple subsegmental (without acute cor pulmonale) Qualified Code(s): I26.94 - Multiple subsegmental pulmonary emboli without acute cor pulmonale (3) Metastatic urothelial carcinoma: (4) Pleural effusion: Impression: 71-year-old male with widely metastatic uroepithelial/transitional cell carcinoma and bilateral pleural effusions with PE and hypoxemic respiratory failure. Unclear how much the pleural effusions are contributing to his hypoxemia. Unclear if they are related to his PE or underlying malignancy. Recommendations: 1. Pleural effusions: The patient will undergo ultrasound-guided catheter thoracentesis on the right to see if this offers him clinical improvement. Fluid will be sent for routine microbiologic as well as cytologic analysis. Depending on if the effusions reaccumulate and whether or not the patient has symptomatic improvement associated with drainage, could consider long-term management including pleurodesis, Pleurx catheter placement, or serial thoracentesis as an outpatient. 2. PE: Agree with long-term anticoagulation under the direction of hematology oncology. 3. Hypoxemic respiratory failure: Multifactorial due to commendations of PE, pleural effusion, and parenchymal lung disease. Unclear how much his hypoxemia will improve with the drainage of the pleural fluid and will need to follow clinically and reassess. Above recommendations and plan were discussed with the patient as well as with the admitting hospitalist at the bedside. Questions were answered to the best my ability. They expressed understanding and are in agreement with plan as outlined. History of Present Illness Attending Physician: Dwayne Mortensen MD History of Present Illness Asked by hospitalist to evaluate this patient with pleural effusion for potential thoracentesis. History is obtained from discussion with the patient, reviewed electronic medical record, and discussion with the hospitalist at bedside. Patient is a 71-year-old male with a history of widely metastatic uroepithelial cancer including pulmonary metastases. He has a history of pulmonary thromboembolic disease. He is admitted to the hospitalist with increasing shortness of breath. CT angiogram was performed which revealed bilateral pleural effusions, right greater than left. We are consulted for thoracentesis. The patient denies fevers chills or night sweats. He is on oxygen at baseline. His oxygen requirement is increased over time. He denies chest pain palpitations or lower extremity edema. No syncope or presyncope. Allergies Allergy/AdvReac Type Severity Reaction Status Date / Time No Known Allergies Allergy Verified 11/18/21 15:47 Home Medications Medication Instructions Recorded Confirmed Type apixaban 2.5 mg tablet (Eliquis) 2.5 mg PO BID 11/18/21 11/18/21 History dexamethasone 4 mg tablet See Rx Instructions .ROUTE .COMPLEX 11/18/21 11/18/21 History dronabinol 5 mg capsule 5 mg PO BID 11/18/21 11/18/21 History levothyroxine 25 mcg tablet 25 mcg PO DAILY 11/18/21 11/18/21 History (Synthroid) pantoprazole 40 mg tablet,delayed 40 mg PO QAM 11/18/21 11/18/21 History release pregabalin 100 mg capsule 100 mg PO BID 11/18/21 11/18/21 History Patient History Medical History (Updated 11/20/21 @ 09:27 by Tarun Blackwood MD) Acid reflux Anemia symptomatic anemia 03/2018 felt related to significant hematuria (20+ days) 2/2 bladder cancer. S/P 3U PRBCs 03/2018 Anxiety Cancer HX OF BLADDER CA Cervical lymphadenopathy History of hypertension Surgical History H/O total cystectomy BLADDER AND PROSTATE REMOVED & LYMPH NODES - HAS NEOBLADDER History of adenoidectomy History of colonoscopy History of cystoscopy CYSTOSCOPY, TUBRT, STENT= 03/26/18= LMA# 5.0 AT [facility] History of endoscopic sinus surgery History of surgery PORT RIGHT UPPER CHEST (CURRENTLY PRESENT) History of tonsillectomy Family History Son Age: 33 No problems noted. Sister Age: 67 No problems noted. Sister No problems noted. Father , heart disease, No problems noted. Mother Arthritis Other No pertinent family history Social History Smoking Status: Former smoker Cigarettes Per Day: h/o 1ppd x 30yrs; Second Hand Exposure: No; Do You Dip or Chew Tobacco: No; Hx Alcohol Use: Yes Alcohol type: beer Hx Substance Use: No Preferred Language: Bermudian Communication Ability: Effective Visual Impairment: No Limitations Disease Case Manager Required: No Beliefs That Will Affect Care: None Current Living Situation: Spouse Other Information That Helps Us Care for You: No Feels Safe at Home: Yes Safety Concerns: Feels Safe At This Time Assistive Devices: None Review of Systems Review of Systems: Please refer to admission H&P Physical Exam Constitutional: WD/WN, vitals as above Eyes: EOM intact bilaterally; no conjunctival abnormality ENMT: external ear and nose normal, oropharynx normal Neck: trachea midline, no thyromegaly normal visual inspection Respiratory: + labored breathing; no respiratory distress Auscultation: + crackles (Diffuse) Cardiovascular: RRR, no murmur, no edema Gastrointestinal (Abdomen): Inspection/Auscultation: abdomen normal to inspection; abdomen not distended Musculoskeletal: no cyanosis or clubbing, extremities motor strength 5/5 Skin: no rashes, warm and dry Neurologic: moves all extremities and awake Psychiatric: Orientation: alert, oriented to person and cooperative Results & Data Results & [facility] ([facility]) Vital Signs (Past 12 Hours) Vital Signs Temp Pulse Pulse Resp BP Pulse Ox 11/20/21 09:02 104 H 11/20/21 07:41 36.8 C 109 H 22 95/63 L 90 11/20/21 02:42 36.6 C 99 H 20 122/69 91 11/19/21 22:35 109 H 24 91 11/19/21 22:17 111 H 11/19/21 22:00 36.8 C 99 H 20 119/81 90 Critical Care Results & Data Vital Signs (Past 12 Hours) Vital Signs Temp Pulse Pulse Resp BP Pulse Ox 11/20/21 09:02 104 H 11/20/21 07:41 36.8 C 109 H 22 95/63 L 90 11/20/21 02:42 36.6 C 99 H 20 122/69 91 11/19/21 22:35 109 H 24 91 11/19/21 22:17 111 H 11/19/21 22:00 36.8 C 99 H 20 119/81 90 Lab & Micro Results (Past 24 Hours) RBC 3.70 M/uL (4.63-6.08) L 11/20/21 WBC 10.77 K/ul (4.8-10.8) 11/20/21 Hgb 10.2 g/dl (14.0-18.0) L 11/20/21 Hct 32.6 % (40.1-51.0) L 11/20/21 MCV 88.1 fL (80.0-100.0) 11/20/21 MCH 27.6 pg (25.0-34.0) 11/20/21 MCHC 31.3 g/dL (32.0-36.0) L 11/20/21 RDW Standard Deviation 47.5 fL (36.4-46.3) H 11/20/21 RDW Coefficient of Variation 14.8 % (11.5-14.5) H 11/20/21 Plt Count 352 K/uL (130-400) 11/20/21 MPV 8.5 fL (9.4-12.4) L 11/20/21 Na 133 mmol/L (136-145) L 11/20/21 K 4.0 mmol/L (3.5-5.1) 11/20/21 Cl 100 mmol/L (98-107) 11/20/21 CO2 26 mmol/L (21-32) 11/20/21 Anion Gap 7 (3-11) 11/20/21 BUN 23 mg/dl (6-23) 11/20/21 Creatinine 0.97 mg/dl (0.6-1.4) 11/20/21 Estimated GFR ( Amer) 91.9 ml/min 11/20/21 Estimated GFR (Non-Af Amer) 79.3 ml/min 11/20/21 BUN/Creatinine Ratio 23.7 (10-20) H 11/20/21 Glu 109 mg/dl (70-99(Fasting)) H 11/20/21 Ca 11.5 mg/dl (8.5-10.1) H 11/20/21 Mg 1.7 mg/dl (1.7-2.4) 11/20/21 05:50 11/20/21 Calcium Level 11.5 mg/dl (8.5-10.1) H 11/20/21 05:50 11/20/21 Ionized Calcium 1.61 mmol/L (1.12-1.32) H* 11/20/21 05:50 11/20/21 Microbiology 11/18/21 12:24 Aerobic Blood Culture - Preliminary Blood No growth in Aerobic bottle after 24 hours. Anaerobic Blood Culture - Final 11/18/21 12:20 Aerobic Blood Culture - Preliminary Blood No growth in Aerobic bottle after 24 hours. Anaerobic Blood Culture - Preliminary No growth in Anaerobic bottle after 24 hours. I & O Totals 24 Hours 11/19/21 11/20/21 11/21/21 06:59 06:59 06:59 Intake Total 1650 / 1650 2000.000 / 2000.000 Balance 1650 / 1650 1999.000 / 2000.000 Cumulative 11/18/21 11:35 thru 11/20/21 05:48 Intake Total 3650.000 Balance 3650.000 RT Ventilator Mngmt (Last Documented) Ventilator Ordered Settings Respiratory Rate 22 11/20/21 07:41 Fraction of Inspired Oxygen 90 11/19/21 10:56 Ventilator - PT Measurements Respiratory Rate 22 PG Care Time/CCT Total # of Minutes Spent Total Time Spent with Patient: Total time spent is greater than 50% in coordination of care (as documented) at patient's floor/unit and/or counseling patient: Coding Level of Care Code 46917 Initial Inpt Care Lvl 3 Diagnoses Acute respiratory failure with hypoxia J96.01 Pulmonary embolism I26.94 Pulmonary embolism type: multiple subsegmental (without acute cor pulmonale) Metastatic urothelial carcinoma C79.10 Pleural effusion J90
--- NOTE | 2021-11-20 09:31 | Procedure Note ---
Procedure Note Date of Service November 20, 2021 Note Procedure: Diagnostic therapeutic ultrasound-guided catheter thoracentesis Radio Antenna Installer: Dr. Tarun Blackwood Indication: Pleural effusion Consent: Signed by patient and verified with timeout prior to procedure Anesthesia: 8 mL's 1% lidocaine without epinephrine local. Procedure: Consent was verified and timeout performed. Appropriate imaging studies were reviewed prior to the procedure. Patient was placed in a seated position and limited thoracic ultrasound was performed of the bilateral chest. No significant effusion identified on the left. A small to moderate sized effusion with some compressive atelectasis was identified on the right. Site appropriate for thoracentesis was selected. The skin was prepped and draped in normal sterile fashion. Lidocaine was used for local analgesia. Fluid was aspirated via the finder needle. A small skin antwan was made with the scalpel and the catheter over the needle apparatus was advanced over the rib into the pleural space. Using the syringe one-way valve system, a total of 700mL's of clear yellowfluid was removed. Procedure was terminated due to inability to withdraw any additional fluid. The catheter was removed and observed to be intact. A sterile dressing was applied. Post procedure chest x-ray was ordered. Fluid was sent for cytology, cell count differential, gram stain and culture, LDH, pH, total protein, and glucose. The patient tolerated the procedure well without obvious complication. He did not experience significant improvement in any of his respiratory symptoms with drainage of the pleural fluid Coding CPT Codes Pulmonary/Thoracic - Pulmonary and Thoracic: 28709 Thoracentesis w imaging ([id number]) [facility] [place] Procedure Codes (Charges) Pulmonary/Thoracic Procedure 1: Pulmonary and Thoracic: 37496 Thoracentesis w imaging
--- NOTE | 2021-11-20 10:04 | Hospitalist Progress Note ---
Date of Service November 20, 2021 Assessment & Plan (1) Acute respiratory failure with hypoxia: Plan: Multifactorial with progression of metastatic disease, pulmonary emboli and presumable metastatic pleural effusion. Discussed possibility of home with hospice care which he is open to however there was talk of another off label trial of a medication for his cancer that he would like to discuss with his oncologist first. If patient wishes to go home without hospice consider pulm consult due to pleural effusion if he is unable to get down to 6LPM O2 - but will defer this on admission and see how he does with pulmonary emboli treatment. Highly recommend re-discussing code status once patient has had time to digest his diagnosis and poor prognosis. - Consulted oncology - Discussed with [place] oncologist (Dr. Vicky Swift) and local (Dr. Velasquez and Ms. George) on 11/19. Tentative plan for home with hospice. -> S/p thoracentesis with Dr. Blackwood on 11/20 with 700 mL removed. Sent for testing. CXR ordered. - Lasix 40 mg IV given on 11/19 & 11/20 with acknowledgement that it may cause kidney injury, but at present time paramount priority is improved pulmonary function. (2) Pulmonary embolism: Plan: CDS query: Metastatic urothelial cancer with mets to lungs inducing hypercoagulable state causing thromboses and PE's. - Failed Eliquis 2.5mg PO BID - higher dose caused previous hematuria. - Started heparin IV standard with bolus. - Plan to transition back to Eliquis -> On hold until noon after thoracentesis per Dr. Blackwood. (3) Hypercalcemia: Plan: Suspect from volume depletion +/- metastatic cancer. Mild with ionized calcium 1.56. - No need for bisphosphonates or calcitonin currently. - Given the fact that we are actually giving diuretics to improve pulmonary status, may benefit from treatment. Will reach out to oncology on-call. (4) Metastatic urothelial carcinoma: Plan: Rapid progression over the last month concerning. - As above (5) Hypothyroid: Plan: TSH 4.728. - Continue levothyroxine 25mcg PO daily. Admission and Anticipated Discharge Date Admission Date: November 18, 2021 Subjective Doing ok today. Feeling somewhat short of breath when he moves, but less so when he is lying down. Reports no fevers/chills, chest pain, abdominal pain, nausea, or vomiting. Physical Exam Constitutional: WD/WN, vitals as above Eyes: EOM intact bilaterally; no conjunctival abnormality ENMT: external ear and nose normal, oropharynx normal Neck: trachea midline, no thyromegaly normal visual inspection Respiratory: + labored breathing; no respiratory distress Auscultation: + crackles (Diffuse) Cardiovascular: RRR, no murmur, no edema Gastrointestinal (Abdomen): Inspection/Auscultation: abdomen normal to inspection; abdomen not distended Musculoskeletal: no cyanosis or clubbing, extremities motor strength 5/5 Skin: no rashes, warm and dry Neurologic: moves all extremities and awake Psychiatric: Orientation: alert, oriented to person and cooperative Results & Data Results & Data ([facility]) Vital Signs (Past 12 Hours) Vital Signs Temp Pulse Pulse Resp BP Pulse Ox 11/20/21 09:43 106 H 108/68 11/20/21 09:02 104 H 11/20/21 07:41 36.8 C 109 H 22 95/63 L 90 11/20/21 02:42 36.6 C 99 H 20 122/69 91 11/19/21 22:35 109 H 24 91 11/19/21 22:17 111 H PG Care Time/CCT Total # of Minutes Spent Total Time Spent with Patient: Total time spent is greater than 50% in coordination of care (as documented) at patient's floor/unit and/or counseling patient: Coding Level of Care Code 04701 Subseq Hosp Care Lvl 3 Diagnoses Acute respiratory failure with hypoxia J96.01 Pulmonary embolism I26.94 Pulmonary embolism type: multiple subsegmental (without acute cor pulmonale) Hypercalcemia E83.52 Metastatic urothelial carcinoma C79.10 Hypothyroid E03.9 (1) Pulmonary embolism Pulmonary embolism type: multiple subsegmental (without acute cor pulmonale) Qualified Code(s): I26.94 - Multiple subsegmental pulmonary emboli without acute cor pulmonale
--- NOTE | 2021-11-20 10:07 | XRay Report ---
XR chest 1V portable CLINICAL HISTORY: S/P Thoracentesis. COMPARISON STUDY: 11/18/2021 TECHNIQUE: 1 view of the chest FINDINGS: Single frontal view of the chest demonstrates the cardiomediastinal silhouette to be within normal li mits. The patient is status post right thoracentesis with decrease right pleural effusion. There is n o evidence for pneumothorax. There is no left pleural effusion. Patchy alveolar opacities are again s een bilaterally and unchanged. These represent metastatic disease. There is no acute osseous patholog y. IMPRESSION: 1. Status post right thoracentesis with no evidence for pneumothorax. 2. No change in bilateral pulmonary emboli. ACT 112: Negative or not required by law. Electronically signed by: Jose Gregg M.D. 11/20/2021 10:04 AM
[2021-11-20 10:20] LABS: Total Protein Pleural Fluid 3.9 gm/dl
[2021-11-20 10:28] LABS: Appearance Pleural Fluid Clear; Color Pleural Fluid Yellow; Lymphocytes, Fluid 20 %; Mono,Macrophage,Mesothelial 76 %; Neutrophils, Fluid 4 %; RBC Pleural Fluid (A) < 2000 /uL; WBC Pleural Fluid (A) 964 /uL
[2021-11-20] MEDS ORDERED: Nursing to Pharmacy Communication SCH (13:15)
[2021-11-20] MEDS: APIXABAN 5 MG TABLET PO SCH ×2 (14:37→23:13)
[2021-11-21] MEDS: LEVOTHYROXINE SODIUM 25 MCG TABLET PO SCH (06:05)
[2021-11-21] MEDS: PREGABALIN 100 MG CAP PO SCH ×2 (08:21→20:26)
[2021-11-21] MEDS: APIXABAN 5 MG TABLET PO SCH ×2 (08:21→20:26)
[2021-11-21] MEDS: DOCUSATE SODIUM 100 MG CAP PO SCH ×2 (08:21→20:27)
[2021-11-21] MEDS: PANTOprazole 40 MG TAB PO SCH (08:21)
--- NOTE | 2021-11-21 09:24 | Pulmonology Progress Note ---
Date of Service November 21, 2021 Assessment & Plan (1) Acute respiratory failure with hypoxia: (2) Pulmonary embolism: Pulmonary embolism type: multiple subsegmental (without acute cor pulmonale) Qualified Code(s): I26.94 - Multiple subsegmental pulmonary emboli without acute cor pulmonale (3) Metastatic urothelial carcinoma: (4) Pleural effusion: Plan: Impression: 71-year-old male with widely metastatic uroepithelial/transitional cell carcinoma and bilateral pleural effusions with PE and hypoxemic respiratory failure. Unclear how much the pleural effusions are contributing to his hypoxemia. Unclear if they are related to his PE or underlying malignancy. Recommendations: 1. Pleural effusions: Exudative. Awaiting cytology. Resolved on chest x-ray. Would manage the patient expectantly. If he has signs or symptoms of recurrence of the effusion, repeat chest x-ray should be obtained and could discuss long- term management strategies at this point in time including Pleurx catheter placement, serial thoracentesis, or pleurodesis. 2. PE: Agree with long-term anticoagulation under the direction of hematology oncology. 3. Hypoxemic respiratory failure: Multifactorial due to PE as well as significant parenchymal lung disease due to metastatic transitional cell carcinoma. Wean oxygen as tolerated. Pulmonary will sign off at this point time. Feel free to contact us if we can be of additional assistance. Admission and Anticipated Discharge Date Admission Date: November 18, 2021 Subjective Patient seen and examined. EMR reviewed. The patient is seen lying supine in bed. He states he does feel slightly better after removal of the pleural fluid yesterday. He is not having any pain at the thoracentesis site. No cough or sputum production. His oxygen has been weaned down to about 13 L/min. Review of Systems Review of Systems: All systems reviewed & are unremarkable except as noted in Subjective Physical Exam Constitutional: WD/WN, vitals as above Eyes: EOM intact bilaterally; no conjunctival abnormality ENMT: external ear and nose normal, oropharynx normal Neck: trachea midline, no thyromegaly normal visual inspection Respiratory: + labored breathing; no respiratory distress Auscultation: + crackles (Diffuse) Cardiovascular: RRR, no murmur, no edema Gastrointestinal (Abdomen): Inspection/Auscultation: abdomen normal to inspection; abdomen not distended Musculoskeletal: no cyanosis or clubbing, extremities motor strength 5/5 Skin: no rashes, warm and dry Neurologic: moves all extremities and awake Psychiatric: Orientation: alert, oriented to person and cooperative Results & Data [facility] Vital Signs (Past 12 Hours) Vital Signs Temp Pulse Pulse Resp BP BP Pulse Ox 11/21/21 08:06 36.5 C 103 H 22 119/72 85 L 11/21/21 07:00 118 H 11/21/21 02:58 36.6 C 114 H 20 111/70 88 L 11/20/21 23:13 36.9 C 110 H 20 97/64 L 89 L 11/20/21 22:05 117 H Laboratory Results 11/20/21 05:50 Pleural fluid studies: Differential 4% neutrophils, 20% lymphocytes, 76% mesothelial cells Pleural pH 7.51 Pleural total protein 3.9 Pleural LDH 155 Pleural glucose 116 Pleural cytology pending Pleural Gram stain few white blood cells with no organisms, cultures pending Diagnostic Findings Post procedure chest x-ray independently reviewed demonstrated resolved right pleural fluid. No pneumothorax. Patchy parenchymal opacities unchanged from previous PG Care Time/CCT Total # of Minutes Spent Total Time Spent with Patient: Total time spent is greater than 50% in coordination of care (as documented) at patient's floor/unit and/or counseling patient: Coding Level of Care Code 51162 Subseq Hosp Care Lvl 2 Diagnoses Acute respiratory failure with hypoxia J96.01 Pulmonary embolism I26.94 Pulmonary embolism type: multiple subsegmental (without acute cor pulmonale) Metastatic urothelial carcinoma C79.10 Pleural effusion J90
[2021-11-21 09:37] LABS: Calcium 12.3 mg/dl (8.5-10.1); Creatinine Clr Calc Pharmacy 63.7 ml/min; Est GFR (African American) 88.6 ml/min; Est GFR (Non-African American) 76.5 ml/min; Potassium 3.9 mmol/L (3.5-5.1)
[2021-11-22] MEDS: LEVOTHYROXINE SODIUM 25 MCG TABLET PO SCH (05:52)
[2021-11-22] MEDS: DOCUSATE SODIUM 100 MG CAP PO SCH (08:03)
[2021-11-22] MEDS: PANTOprazole 40 MG TAB PO SCH (08:03)
[2021-11-22] MEDS: APIXABAN 5 MG TABLET PO SCH (08:03)
[2021-11-22] MEDS: PREGABALIN 100 MG CAP PO SCH (08:03)
[2021-11-22] MEDS ORDERED: BENZONATATE 100 MG CAPSULE PO ONE (10:48)
[2021-11-22] MEDS ORDERED: guaiFENesin/DEXTROM SYRUP 200MG/20MG 10ML UDC PO STA (10:48)
[2021-11-22 11:11] VITALS: PULSE 108; TEMP 98.1; O2SAT 88
[2021-11-22 12:08] VITALS: BP 113/71
--- NOTE | 2021-11-22 13:11 | Discharge Summary ---
Date of Service November 22, 2021 Admission HPI Per Admitting Provider Landon Pierre is a 71 year old male with known metastatic urothelial cell cancer who presents to the ER with progressive worsening shortness of breath over the last 2 weeks. He denies any chest pain or palpitations. He reports he is much worse over the last 2 days. 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 In the ER he was requiring 15LPM O2, now reduced to 10LPM O2 when seen. CT chest/abdomen/pelvis concerning for a few segmental and subsegmental pulmonary emboli within the right lower lobe but also progression of extensive metastatic disease within the chest since November 05, 2021 and increase in size of small- moderate right pleural effusion. He was started on IV heparin and referred to medicine for admission and ongoing management of hypoxia, pulmonary emboli, metastatic cancer and hypercalcemia. Principal Diagnosis Metastatic cancer with pulmonary disease Discharge Exam Constitutional WD/WN, vitals as above Eyes EOM intact bilaterally; no conjunctival abnormality ENMT external ear and nose normal, oropharynx normal Neck trachea midline, no thyromegaly normal visual inspection Respiratory + labored breathing; no respiratory distress Auscultation: + crackles (Diffuse) Cardiovascular RRR, no murmur, no edema Gastrointestinal (Abdomen) Inspection/Auscultation: abdomen normal to inspection; abdomen not distended Musculoskeletal no cyanosis or clubbing, extremities motor strength 5/5 Skin no rashes, warm and dry Neurologic moves all extremities and awake Psychiatric Orientation: alert, oriented to person and cooperative Discharge Data Allergies Allergy/AdvReac Type Severity Reaction Status Date / Time No Known Allergies Allergy Verified 11/18/21 15:47 Consultations 11/18/21 14:29 ED Decision to Admit Stat 11/19/21 13:44 Consult Pulmonology Routine Ordered Studies 11/18/21 12:04 CT abd pelvis IV con only Stat CT angio chest PE protocol Stat Hospital Course (1) Acute respiratory failure with hypoxia: Multifactorial with progression of metastatic disease, pulmonary emboli and presumable metastatic pleural effusion. Discussed possibility of home with hospice care which he is open to however there was talk of another off label trial of a medication for his cancer that he would like to discuss with his oncologist first. If patient wishes to go home without hospice consider pulm consult due to pleural effusion if he is unable to get down to 6LPM O2 - but will defer this on admission and see how he does with pulmonary emboli treatment. Highly recommend re-discussing code status once patient has had time to digest his diagnosis and poor prognosis. - Consulted oncology - Discussed with [place] oncologist (Dr. Vicky Swift) and local (Dr. Velasquez and Ms. George) on 11/19. Tentative plan for home with hospice. -> S/p thoracentesis with Dr. Blackwood on 11/20 with 700 mL removed. Sent for testing. CXR ordered. - Lasix 40 mg IV given on 11/19 & 11/20 with acknowledgement that it may cause kidney injury, but at present time paramount priority is improved pulmonary function. - On discharge, he was using 10 L NC which is the highest hospice can accommodate. SpO2 ranged from 82% - 91%, but patient had minimal shortness of breath with any of these SpO2s. Emphasized that once he goes home, SpO2 does not really matter as hospice will be treating symptoms, regardless of pulse ox readings. Patient and family somewhat accepting of this, though still clearly concerned about low readings and what to do at home. - Discharged home on hospice on 11/22. Had many discussions about goals of hospice, how to manage symptoms at home, and how to to avoid return to ER. Patient still retains some hope of "miraculous" improvement and ability to return to chemotherapy, so I am not sure he is truly accepting of hospice and end-of-life status. But this seems to be the best option to prioritize his comfort and hopefully avoid repeat hospitalizations. His current top priority is going home. (2) Pulmonary embolism: CDS query: Metastatic urothelial cancer with mets to lungs inducing hypercoagulable state causing thromboses and PE's. - Failed Eliquis 2.5mg PO BID - higher dose caused previous hematuria. - Discharged on Eliquis 5 mg PO BID -> Had some hematuria, but patient felt this was minimal and ok with higher dose. (3) Hypercalcemia: Suspect from volume depletion +/- metastatic cancer. Mild with ionized calcium 1.56. - No need for bisphosphonates or calcitonin currently. - Given the fact that we are actually giving diuretics to improve pulmonary status, may benefit from treatment. Will reach out to oncology on-call. (4) Metastatic urothelial carcinoma: Rapid progression over the last month concerning. - As above (5) Hypothyroid: TSH 4.728. - Continue levothyroxine 25mcg PO daily. Total Time Total Time Spent Total Time Spent (In Minutes): 45 Discharge Plan Discharge Items Patient Disposition: Hospice - Home Reason For Visit: ACUTE HYPOXIS, PULMONSTY EMBOLI, METASTATIC PULMON Discharge Diagnosis: Metastatic cancer causing a pulmonary embolism and low oxygen levels Activity: Resume your previous activity Non-emergency contact: Specialist Call non-emergency contact if: your symptoms worsen Follow-up/Referrals: Jim Douglas, [Primary Care Provider] - Diet: Regular Addtl Attending Provider Instructions: Mr. Pierre, You were admitted to the hospital with shortness of breath found to be from a pulmonary embolism (blood clot in the lung) as well as changes/damage to the lung from worsening metastatic cancer. While here, we treated your blood clot with IV blood thinner and a transition back to a higher dose of your Eliquis (apixaban). Additionally, Dr. Blackwood drained some fluid from between your lung and rib cage that the cancer had caused to accumulate there. With that and some medications, we have stabilized and improved your breathing. Please follow up with hospice for further management of your symptoms. Pending Studies at Discharge: No Stand-Alone Forms: My [facility] Medications and DC Order Prescriptions: New Eliquis 5 mg Tablet 5 mg PO BID Qty: 60 RF: 0 furosemide [Lasix] 20 mg tablet 20 mg PO DAILY Qty: 30 RF: 0 morphine concentrate 100 mg/5 mL (20 mg/mL) solution 2 mg PO Q2H PRN (Reason: shortness of breath or pain) Qty: 30 RF: 0 lorazepam [Ativan] 0.5 mg tablet 0.5 mg PO Q6H PRN (Reason: anxiety) Qty: 10 RF: 0 benzonatate 100 mg capsule 100 mg PO TID PRN (Reason: cough) Qty: 30 RF: 0 dextromethorphan-guaifenesin [Guaiasorb DM] 10-100 mg/5 mL liquid 10 ml PO Q8H PRN (Reason: cough) Qty: 1000 RF: 0 Continued levothyroxine [Synthroid] 25 mcg tablet 25 mcg PO DAILY RF: 0 pregabalin 100 mg capsule 100 mg PO BID RF: 0 dronabinol 5 mg capsule 5 mg PO BID RF: 0 pantoprazole 40 mg tablet,delayed release (DR/EC) 40 mg PO QAM RF: 0 Discontinued dexamethasone 4 mg tablet See Rx Instructions .ROUTE .COMPLEX RF: 0 Eliquis 2.5 mg tablet 2.5 mg PO BID RF: 0 Discharge Orders: Discharge Order (Routine); Ordered 11/22/21 Ordered By: Dwayne Mortensen Admission Data Admit Date/Time: 11/18/21 15:20 Attending Provider: Dwayne Mortensen Admit Provider: Bernardino Gallagher Primary Care Provider: Jim Douglas Other Providers: Dwayne Mortensen ; Tarun Blackwood Other Interventions: Discharge Summary Assessment (RN) Last Done: 11/22/21 12:06 Coding Level of Care Code D/C DAY MANAGEMENT >30 MINS Diagnoses Acute respiratory failure with hypoxia J96.01 Pulmonary embolism I26.94 Pulmonary embolism type: multiple subsegmental (without acute cor pulmonale) Hypercalcemia E83.52 Metastatic urothelial carcinoma C79.10 Hypothyroid E03.9
== END 2021-11-22 14:38 | disposition hospice, home (50) | DRG 686 ==
LOC: ED 11:35 → SUATTDRO 15:20 → EDINP 15:20 → 2S 18:07